=== PATIENT | female | born 1975 | race Caucasian/White ===

== ENCOUNTER 2018-12-10 16:57 | Inpatient (IN) | payer OTHER ==
[~2018-12-10] VITALS: Ht 180.3 cm; Wt 83.7 kg
--- NOTE | ~2018-12-10 | EKG ---
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
[2018-12-10 16:58] VITALS: BP 138/62
[2018-12-10 17:41] LABS: BASO % 0.2 % (0.0-1.0); EOS # 0.2 10*3/uL (0.0-0.4); EOS % 2.4 % (1.0-4.0); HEMOGLOBIN 14.8 g/dl (12.0-16.0); LYMPH % 24.4 % (27.0-41.0); MEAN CELL VOLUME 100.9 fl (81.0-99.0); MEAN CORPUSCULAR HGB 33.2 pg (27.0-31.0); MEAN CORPUSCULAR HGB CONC 32.9 g/dl (33.0-37.0); MEAN PLATELET VOLUME 9.3 fl (9.6-12.3); MONO # 0.3 10*3/uL (0.1-1.0); MONO % 3.6 % (3.0-9.0); NEUT # 5.6 10*3/uL (2.3-7.9); NEUT % 69.2 % (47.0-73.0); PLATELET COUNT AUTOMATED 277 10*3/uL (130-400); RED BLOOD COUNT 4.46 10*6/uL (4.10-5.10)
[2018-12-10 18:05] LABS: ALBUMIN 3.8 gm/dl (3.1-4.5); ALKALINE PHOSPHATASE 72 U/L (45-117); BUN 9 mg/dl (7-24); CHLORIDE 107 mmol/L (98-107); CREATININE 0.79 mg/dL (0.55-1.02); POTASSIUM 3.5 mmol/L (3.5-5.1); SGOT/AST 32 IU/L (3-35); SGPT/ALT 38 U/L (12-78); SODIUM 141 mmol/L (136-145); TOTAL PROTEIN 7.8 gm/dL (6.4-8.2)
[2018-12-10 18:36] VITALS: BP 114/70
[2018-12-10 18:39] LABS: BILIRUBIN NEGATIVE (NEGATIVE); BLOOD NEGATIVE (NEGATIVE); CLARITY CLEAR (CLEAR); COLOR YELLOW (YELLOW); GLUCOSE NEGATIVE (NEGATIVE); KETONE NEGATIVE (NEGATIVE); LEUKO ESTERASE NEGATIVE (NEGATIVE); NITRITE NEGATIVE (NEGATIVE); SPECIFIC GRAVITY 1.015 (1.005-1.030); UROBILINOGEN 0.2 E.U./dl (0.2-1.0)
[2018-12-10 18:46] LABS: BACTERIA TRACE; EPITHELIAL CELLS 0-2; WBC 0-2 wbc/hpf (0-5)
[2018-12-10 18:48] LABS: URINE AMPHETAMINES < 1000 (1000ng/ml); URINE BARBITURATES < 200 (200ng/ml); URINE BENZODIAZEPINES < 200 (200ng/ml); URINE CANNABINOIDS (THC) > 50 (50ng/ml); URINE COCAINE > 300 (300ng/ml); URINE METHADONE < 300 (300ng/ml); URINE OPIATES > 300 (300ng/ml)
[2018-12-10 18:49] LABS: URINE PHENCYCLIDINE < 25 (25ng/ml)
[2018-12-10 19:45] VITALS: BP 100/53
--- NOTE | 2018-12-10 19:45 | NUR ---
Time: 1943 A 43 year old FEMALE admitted to under services of ROSA MARIA DE LA TORRE DO. Pt. arrived via bed from ER. Chief complaint: OPIATE DEPENDENCE. BAM TONEY
[2018-12-10 20:00] VITALS: BP 100/53
--- NOTE | 2018-12-10 20:02 | NUR ---
PATIENT MEDICATED WITH VISTARIL AND MOTRIN PER PRN ORDER AND PATIENT REQUEST FOR C/O ANXIETY AND TOOTH ACHE. SEE EMAR. REINFORCED USE OF CALL LIGHT.
[2018-12-10] MEDS ORDERED: XANAX1 MG PO (20:09)
[2018-12-10] MEDS ORDERED: ADDERALL 30 MG30 MG PO (20:10)
[2018-12-10] MEDS ORDERED: Fioricet 325 MG1 TAB PO (20:12)
[2018-12-11] VITALS: BP 103/43
--- NOTE | 2018-12-11 01:00 | NUR ---
Patient resting. Responding to scheduled medications with fewer complaints of pain and anxiety.
[2018-12-11 04:00] VITALS: BP 128/80
[2018-12-11 08:00] VITALS: BP 117/65
--- NOTE | 2018-12-11 08:27 | NUR ---
PATIENT MEETS [facility]. [place] STAFF WILL FOLLOW UP WITH PATIENT. KAYE LO B.A. ENGLISH LANGUAGE ARTS TEACHER
[2018-12-11 12:00] VITALS: BP 110/68
--- NOTE | 2018-12-11 13:08 | NUR ---
PATIENT WANTS TO FOLLOW UP WITH [facility] FOR OUTPATIENT TREATMENT. [place] STAFF WILL PROVIDE WALK-IN TIMES FOR ASSESSMENTS. KAYE LO B.A. BINDERY HELPER
[2018-12-11 16:00] VITALS: BP 93/50
--- NOTE | 2018-12-11 19:15 | NUR ---
PT DISCHARGED HOME AT THIS TIME AFTER BEING FOUND SMOKING IN THE [place]. VIDEO EVIDENCE PROVIDED BY RESEARCH PROGRAM INTERN. PT AMBULATED OFF THE FLOOR TO SEE HER BOYFRIEND ON THE 5TH FLOOR PER STAFF. VSS.
== END 2018-12-11 19:15 | disposition home or self-care (01) | DRG 897 ==
LOC: ED 16:57 → 4E 17:41 → EDHOLD 17:41 → 4E 18:06
PROVIDERS: Emergency Medicine; ADMIT Internal Medicine
DX: F11.23 Opioid dependence with withdrawal (principal); F41.9 Anxiety disorder, unspecified; D75.89 Other specified diseases of blood and blood-forming organs; F17.210 Nicotine dependence, cigarettes, uncomplicated; F12.90 Cannabis use, unspecified, uncomplicated; Z71.6 Tobacco abuse counseling; Z88.8 Allergy status to other drugs, medicaments and biological substances; Z98.51 Tubal ligation status; Z80.1 Family history of malignant neoplasm of trachea, bronchus and lung; Z83.79 Family history of other diseases of the digestive system; Z79.899 Other long term (current) drug therapy